=== PATIENT | male | born 1960 | race Caucasian/White ===

== ENCOUNTER 2020-05-03 12:28 | Inpatient (IN) | payer OTHER ==
[2020-05-03 13:25] VITALS: BMI 27.1
[2020-05-03] MEDS ORDERED: IBUPROFEN 400 MG TABLET (FP) PO ONE (13:49)
[2020-05-03] MEDS ORDERED: BISMUTH SUBSALICYLATE 524 MG/30 ML UD PO PRN (13:53)
[2020-05-03] MEDS ORDERED: ONDANSETRON *ODT* 4 MG TABLET SL PRN (13:53)
[2020-05-03] MEDS ORDERED: chlordiazePOXIDE HCL 25 MG CAPSULE PO PRN (13:53)
[2020-05-03] MEDS ORDERED: MAG HYDROX/AL HYDROX/SIMETH 30 ML UNIT-DOSE CUP PO PRN (13:53)
[2020-05-03] MEDS ORDERED: MENTHOL/PHENOL 1 EACH UD MM PRN (13:53)
[2020-05-03] MEDS ORDERED: METHOCARBAMOL 500 MG TABLET PO PRN (13:53)
[2020-05-03] MEDS ORDERED: MAGNESIUM HYDROX 2400MG/30ML ORAL SUSPENSION 30 ML CUP PO PRN (13:53)
[2020-05-03] MEDS ORDERED: ACETAMINOPHEN 325 MG TABLET (FP) PO PRN ×2 (13:53)
[2020-05-03] MEDS ORDERED: MAGNESIUM CITRATE 300 ML BOTTLE PO PRN (13:53)
[2020-05-03] MEDS ORDERED: NICOTINE POLACRILEX 2 MG GUM BUC PRN (13:53)
[2020-05-03] MEDS: IBUPROFEN 400 MG TABLET (FP) PO PRN (14:00)
[2020-05-03] MEDS: hydrOXYzine PAMOATE 25 MG CAPSULE (FP) PO SCH ×3 (15:27→22:10)
[2020-05-03] MEDS: NICOTINE 21 MG/24 HOURS TOPICAL PATCH TD SCH (15:31)
[2020-05-03 16:59] LABS: HEMATOCRIT 42.1 % (35.4-49); HEMOGLOBIN 14.9 GM/dL (11.7-16.9); MCH 30.3 pg (25.7-33.7); MCHC 35.3 g/dl (32.0-35.9); MEAN CELL VOLUME 86.1 fl (80-96); MEAN PLT VOLUME 7.4 fl (7.5-11.1); PLATELET COUNT 368 K/MM3 (134-434); POTASSIUM 3.4 mmol/L (3.5-5.1); RDW 14.1 % (11.9-15.9); WHITE BLOOD COUNT 9.1 K/mm3 (4.0-10.0)
[2020-05-03 17:04] LABS: CALCIUM 9.4 mg/dL (8.5-10.1)
[2020-05-03 17:05] LABS: ALBUMIN 4.5 g/dl (3.4-5.0); BLOOD UREA NITROGEN 10.3 mg/dL (7-18)
[2020-05-03 17:08] LABS: CREATININE 1.1 mg/dL (0.55-1.3)
[2020-05-03 17:10] LABS: BILIRUBIN,TOTAL 1.2 mg/dL (0.2-1); TOT PROT 8.8 g/dl (6.4-8.2)
[2020-05-03] MEDS: chlordiazePOXIDE HCL 25 MG CAPSULE PO SCH ×2 (17:43→22:09)
[2020-05-03] MEDS: MELATONIN 5 MG TABLETS PO SCH (22:09)
[2020-05-03] MEDS: THIAMINE HCL 100 MG TABLET (FP) PO SCH (22:09)
[2020-05-04] MEDS: hydrOXYzine PAMOATE 25 MG CAPSULE (FP) PO SCH ×5 (05:14→22:26)
[2020-05-04] MEDS: chlordiazePOXIDE HCL 25 MG CAPSULE PO SCH ×4 (05:14→22:25)
[2020-05-04] MEDS: FLUoxetine HCL 20 MG CAPSULE PO SCH (10:12)
[2020-05-04] MEDS: NICOTINE 21 MG/24 HOURS TOPICAL PATCH TD SCH (10:12)
[2020-05-04] MEDS: PRENATAL VITAMINS W/ FOLIC ACID TABLET (FP) PO SCH (10:12)
[2020-05-04 12:53] LABS: HIV INTERPRETATION NEGATIVE (NEGATIVE)
[2020-05-04] MEDS: IBUPROFEN 400 MG TABLET (FP) PO PRN (16:35)
[2020-05-04] MEDS: THIAMINE HCL 100 MG TABLET (FP) PO SCH (22:25)
[2020-05-04] MEDS: MELATONIN 5 MG TABLETS PO SCH (22:26)
[2020-05-05] MEDS: hydrOXYzine PAMOATE 25 MG CAPSULE (FP) PO SCH ×5 (05:27→22:14)
[2020-05-05] MEDS: chlordiazePOXIDE HCL 25 MG CAPSULE PO SCH ×4 (05:27→22:14)
[2020-05-05] MEDS: FLUoxetine HCL 20 MG CAPSULE PO SCH (10:06)
[2020-05-05] MEDS: NICOTINE 21 MG/24 HOURS TOPICAL PATCH TD SCH (10:07)
[2020-05-05] MEDS: PRENATAL VITAMINS W/ FOLIC ACID TABLET (FP) PO SCH (10:07)
[2020-05-05] MEDS ORDERED: POTASSIUM CHLORIDE TABS 20 MEQ TABLET.ER (FP) PO ONE (14:15)
[2020-05-05] MEDS: IBUPROFEN 400 MG TABLET (FP) PO PRN (17:32)
[2020-05-05] MEDS: MELATONIN 5 MG TABLETS PO SCH (22:14)
[2020-05-05] MEDS: THIAMINE HCL 100 MG TABLET (FP) PO SCH (22:14)
[2020-05-06] MEDS ORDERED: chlordiazePOXIDE HCL 10 MG CAPSULE PO PRN
[2020-05-06] MEDS: hydrOXYzine PAMOATE 25 MG CAPSULE (FP) PO SCH ×5 (05:35→22:53)
[2020-05-06] MEDS: chlordiazePOXIDE HCL 10 MG CAPSULE PO SCH ×4 (05:35→22:47)
[2020-05-06] MEDS: NICOTINE 21 MG/24 HOURS TOPICAL PATCH TD SCH (10:43)
[2020-05-06] MEDS: IBUPROFEN 400 MG TABLET (FP) PO PRN (10:46)
[2020-05-06] MEDS: FLUoxetine HCL 20 MG CAPSULE PO SCH (10:46)
[2020-05-06] MEDS: PRENATAL VITAMINS W/ FOLIC ACID TABLET (FP) PO SCH (10:50)
[2020-05-06 11:32] LABS: POTASSIUM 3.8 mmol/L (3.5-5.1)
[2020-05-06 11:40] LABS: ALBUMIN 3.1 g/dl (3.4-5.0)
[2020-05-06 11:42] LABS: BILIRUBIN,DIRECT 0.1 mg/dL (0.0-0.2)
[2020-05-06 11:44] LABS: BILIRUBIN,TOTAL 0.6 mg/dL (0.2-1)
[2020-05-06 11:48] LABS: TOT PROT 6.3 g/dl (6.4-8.2)
[2020-05-06] MEDS: THIAMINE HCL 100 MG TABLET (FP) PO SCH (22:47)
[2020-05-06] MEDS: MELATONIN 5 MG TABLETS PO SCH (22:52)
[2020-05-07] MEDS: hydrOXYzine PAMOATE 25 MG CAPSULE (FP) PO SCH ×5 (05:20→22:21)
[2020-05-07] MEDS: chlordiazePOXIDE HCL 10 MG CAPSULE PO SCH ×2 (05:20→18:19)
[2020-05-07] MEDS: IBUPROFEN 400 MG TABLET (FP) PO PRN (07:23)
[2020-05-07] MEDS: FLUoxetine HCL 20 MG CAPSULE PO SCH (10:09)
[2020-05-07] MEDS: PRENATAL VITAMINS W/ FOLIC ACID TABLET (FP) PO SCH (10:09)
[2020-05-07] MEDS: NICOTINE 21 MG/24 HOURS TOPICAL PATCH TD SCH (10:10)
[2020-05-07] MEDS: THIAMINE HCL 100 MG TABLET (FP) PO SCH (22:20)
[2020-05-07] MEDS: MELATONIN 5 MG TABLETS PO SCH (22:21)
[2020-05-08] MEDS ORDERED: chlordiazePOXIDE HCL 10 MG CAPSULE PO ONE (05:00)
[2020-05-08] MEDS: hydrOXYzine PAMOATE 25 MG CAPSULE (FP) PO SCH ×2 (05:21→10:39)
[2020-05-08 09:29] VITALS: BP 129/67; PULSE 56; TEMP 98.6
[2020-05-08] MEDS ORDERED: amLODIPine BESYLATE 10 MG TABLET (FP) PO SCH (10:00)
[2020-05-08] MEDS: IBUPROFEN 400 MG TABLET (FP) PO PRN (10:36)
[2020-05-08] MEDS: FLUoxetine HCL 20 MG CAPSULE PO SCH (10:36)
[2020-05-08] MEDS: PRENATAL VITAMINS W/ FOLIC ACID TABLET (FP) PO SCH (10:38)
[2020-05-08] MEDS: NICOTINE 21 MG/24 HOURS TOPICAL PATCH TD SCH (10:38)
== END 2020-05-08 12:07 | disposition other institution (70) | DRG 774 ==
LOC: YASAS 12:28 → Y6N 14:30
PROVIDERS: ADMIT Allergy & Immunology; ATTEND Allergy & Immunology
PROC: HZ2ZZZZ Detoxification Services for Substance Abuse Treatment (ICD-10-PCS; principal; 2020-05-03)
DX: F10.230 Alcohol dependence with withdrawal, uncomplicated (principal); F13.20 Sedative, hypnotic or anxiolytic dependence, uncomplicated; F14.20 Cocaine dependence, uncomplicated; F12.10 Cannabis abuse, uncomplicated; F19.24 Other psychoactive substance dependence with psychoactive substance-induced mood disorder; F19.280 Other psychoactive substance dependence with psychoactive substance-induced anxiety disorder; F19.282 Other psychoactive substance dependence with psychoactive substance-induced sleep disorder; I10 Essential (primary) hypertension; E87.6 Hypokalemia; B18.2 Chronic viral hepatitis C; N40.0 Benign prostatic hyperplasia without lower urinary tract symptoms; R79.89 Other specified abnormal findings of blood chemistry; Z87.891 Personal history of nicotine dependence; Z62.810 Personal history of physical and sexual abuse in childhood; Z86.74 Personal history of sudden cardiac arrest; Z86.59 Personal history of other mental and behavioral disorders; Z59.0 Homelessness
CPT/HCPCS: 36415; 80053; 80076; 84132; 85027; 86780; 87389; 93005; 93010; C9803; U0003

== ENCOUNTER 2020-05-08 12:31 | Inpatient (IN) | payer OTHER ==
[2020-05-08] MEDS ORDERED: guaiFENesin 200 MG/10 ML 10 ML UNIT-DOSE CUPS PO PRN (14:54)
[2020-05-08] MEDS ORDERED: P-EPHED 60MG/TRIPROLIDI 2.5MG TABLET PO PRN (14:54)
[2020-05-08] MEDS ORDERED: LOPERAMIDE HCL 2 MG CAPSULE PO PRN (14:54)
[2020-05-08] MEDS ORDERED: MENTHOL/PHENOL 1 EACH UD MM PRN (14:54)
[2020-05-08] MEDS ORDERED: MAGNESIUM HYDROX 2400MG/30ML ORAL SUSPENSION 30 ML CUP PO PRN (14:54)
[2020-05-08] MEDS ORDERED: MAG HYDROX/AL HYDROX/SIMETH 30 ML UNIT-DOSE CUP PO PRN (14:54)
[2020-05-08] MEDS ORDERED: ACETAMINOPHEN 325 MG TABLET (FP) PO PRN (14:54)
[2020-05-08] MEDS ORDERED: MAGNESIUM CITRATE 300 ML BOTTLE PO PRN (14:54)
[2020-05-08] MEDS ORDERED: NICOTINE POLACRILEX 2 MG GUM BUC PRN (14:56)
[2020-05-08] MEDS ORDERED: METHOCARBAMOL 500 MG TABLET PO PRN (14:58)
[2020-05-08] MEDS: THIAMINE HCL 100 MG TABLET (FP) PO SCH (21:07)
[2020-05-08] MEDS: MELATONIN 5 MG TABLETS PO SCH (21:07)
[2020-05-08] MEDS: LIDOCAINE PATCH REMOVAL MC SCH (21:07)
[2020-05-09] MEDS: FLUoxetine HCL 20 MG CAPSULE PO SCH (09:32)
[2020-05-09] MEDS: HYDROCHLOROTHIAZIDE 25 MG TABLET (FP) PO SCH (09:32)
[2020-05-09] MEDS: PRENATAL VITAMINS W/ FOLIC ACID TABLET (FP) PO SCH (09:32)
[2020-05-09] MEDS: LIDOCAINE 5% TOPICAL PATCH TP SCH (09:33)
[2020-05-09] MEDS: amLODIPine BESYLATE 10 MG TABLET (FP) PO SCH (09:33)
[2020-05-09] MEDS: IBUPROFEN 400 MG TABLET (FP) PO PRN (09:33)
[2020-05-09] MEDS: THIAMINE HCL 100 MG TABLET (FP) PO SCH (22:00)
[2020-05-09] MEDS: MELATONIN 5 MG TABLETS PO SCH (22:00)
[2020-05-09] MEDS: LIDOCAINE PATCH REMOVAL MC SCH (22:00)
[2020-05-10] MEDS: PRENATAL VITAMINS W/ FOLIC ACID TABLET (FP) PO SCH (09:49)
[2020-05-10] MEDS: amLODIPine BESYLATE 10 MG TABLET (FP) PO SCH (09:49)
[2020-05-10] MEDS: FLUoxetine HCL 20 MG CAPSULE PO SCH (09:49)
[2020-05-10] MEDS: HYDROCHLOROTHIAZIDE 25 MG TABLET (FP) PO SCH (09:49)
[2020-05-10] MEDS: LIDOCAINE 5% TOPICAL PATCH TP SCH (09:50)
[2020-05-10] MEDS: IBUPROFEN 400 MG TABLET (FP) PO PRN ×2 (09:51→21:49)
[2020-05-10] MEDS: LIDOCAINE PATCH REMOVAL MC SCH (21:48)
[2020-05-10] MEDS: MELATONIN 5 MG TABLETS PO SCH (21:48)
[2020-05-10] MEDS: THIAMINE HCL 100 MG TABLET (FP) PO SCH (21:48)
[2020-05-11] MEDS: hydrOXYzine PAMOATE 25 MG CAPSULE (FP) PO PRN (09:44)
[2020-05-11] MEDS: PRENATAL VITAMINS W/ FOLIC ACID TABLET (FP) PO SCH (09:45)
[2020-05-11] MEDS: LIDOCAINE 5% TOPICAL PATCH TP SCH (09:45)
[2020-05-11] MEDS: amLODIPine BESYLATE 10 MG TABLET (FP) PO SCH (09:45)
[2020-05-11] MEDS: HYDROCHLOROTHIAZIDE 25 MG TABLET (FP) PO SCH (09:45)
[2020-05-11] MEDS: FLUoxetine HCL 20 MG CAPSULE PO SCH (09:45)
[2020-05-11] MEDS: IBUPROFEN 400 MG TABLET (FP) PO PRN (09:45)
[2020-05-11] MEDS: LIDOCAINE PATCH REMOVAL MC SCH (22:46)
[2020-05-11] MEDS: MELATONIN 5 MG TABLETS PO SCH (22:46)
[2020-05-11] MEDS: THIAMINE HCL 100 MG TABLET (FP) PO SCH (22:47)
[2020-05-12] MEDS: LIDOCAINE 5% TOPICAL PATCH TP SCH (10:06)
[2020-05-12] MEDS: FLUoxetine HCL 20 MG CAPSULE PO SCH (10:07)
[2020-05-12] MEDS: HYDROCHLOROTHIAZIDE 25 MG TABLET (FP) PO SCH (10:07)
[2020-05-12] MEDS: PRENATAL VITAMINS W/ FOLIC ACID TABLET (FP) PO SCH (10:07)
[2020-05-12] MEDS: amLODIPine BESYLATE 10 MG TABLET (FP) PO SCH (10:07)
[2020-05-12] MEDS: LIDOCAINE PATCH REMOVAL MC SCH (22:14)
[2020-05-12] MEDS: MELATONIN 5 MG TABLETS PO SCH (22:14)
[2020-05-12] MEDS: THIAMINE HCL 100 MG TABLET (FP) PO SCH (22:14)
[2020-05-13] MEDS: PRENATAL VITAMINS W/ FOLIC ACID TABLET (FP) PO SCH (09:37)
[2020-05-13] MEDS: amLODIPine BESYLATE 10 MG TABLET (FP) PO SCH (09:37)
[2020-05-13] MEDS: FLUoxetine HCL 20 MG CAPSULE PO SCH (09:37)
[2020-05-13] MEDS: HYDROCHLOROTHIAZIDE 25 MG TABLET (FP) PO SCH (09:38)
[2020-05-13] MEDS: LIDOCAINE 5% TOPICAL PATCH TP SCH (09:38)
[2020-05-13] MEDS: IBUPROFEN 400 MG TABLET (FP) PO PRN (09:39)
[2020-05-13] MEDS: LIDOCAINE PATCH REMOVAL MC SCH (21:38)
[2020-05-13] MEDS: THIAMINE HCL 100 MG TABLET (FP) PO SCH (21:38)
[2020-05-13] MEDS: MELATONIN 5 MG TABLETS PO SCH (21:38)
[2020-05-14] MEDS: HYDROCHLOROTHIAZIDE 25 MG TABLET (FP) PO SCH (09:26)
[2020-05-14] MEDS: PRENATAL VITAMINS W/ FOLIC ACID TABLET (FP) PO SCH (09:26)
[2020-05-14] MEDS: FLUoxetine HCL 20 MG CAPSULE PO SCH (09:26)
[2020-05-14] MEDS: amLODIPine BESYLATE 10 MG TABLET (FP) PO SCH (09:27)
[2020-05-14] MEDS: LIDOCAINE 5% TOPICAL PATCH TP SCH (09:27)
[2020-05-14] MEDS: IBUPROFEN 400 MG TABLET (FP) PO PRN (09:28)
[2020-05-14] MEDS: THIAMINE HCL 100 MG TABLET (FP) PO SCH (22:14)
[2020-05-14] MEDS: MELATONIN 5 MG TABLETS PO SCH (22:14)
[2020-05-14] MEDS: LIDOCAINE PATCH REMOVAL MC SCH (22:14)
[2020-05-15] MEDS: amLODIPine BESYLATE 10 MG TABLET (FP) PO SCH (09:32)
[2020-05-15] MEDS: PRENATAL VITAMINS W/ FOLIC ACID TABLET (FP) PO SCH (09:32)
[2020-05-15] MEDS: FLUoxetine HCL 20 MG CAPSULE PO SCH (09:32)
[2020-05-15] MEDS: HYDROCHLOROTHIAZIDE 25 MG TABLET (FP) PO SCH (09:32)
[2020-05-15] MEDS: IBUPROFEN 400 MG TABLET (FP) PO PRN (09:33)
[2020-05-15] MEDS: LIDOCAINE 5% TOPICAL PATCH TP SCH (09:33)
[2020-05-15] MEDS: THIAMINE HCL 100 MG TABLET (FP) PO SCH (21:13)
[2020-05-15] MEDS: MELATONIN 5 MG TABLETS PO SCH (21:13)
[2020-05-15] MEDS: LIDOCAINE PATCH REMOVAL MC SCH (21:13)
[2020-05-16] MEDS: FLUoxetine HCL 20 MG CAPSULE PO SCH (09:43)
[2020-05-16] MEDS: amLODIPine BESYLATE 10 MG TABLET (FP) PO SCH (09:43)
[2020-05-16] MEDS: PRENATAL VITAMINS W/ FOLIC ACID TABLET (FP) PO SCH (09:43)
[2020-05-16] MEDS: HYDROCHLOROTHIAZIDE 25 MG TABLET (FP) PO SCH (09:43)
[2020-05-16] MEDS: LIDOCAINE 5% TOPICAL PATCH TP SCH (09:44)
[2020-05-16] MEDS: IBUPROFEN 400 MG TABLET (FP) PO PRN (14:16)
[2020-05-16] MEDS: THIAMINE HCL 100 MG TABLET (FP) PO SCH (21:40)
[2020-05-16] MEDS: LIDOCAINE PATCH REMOVAL MC SCH (21:40)
[2020-05-16] MEDS: MELATONIN 5 MG TABLETS PO SCH (21:40)
[2020-05-17] MEDS: amLODIPine BESYLATE 10 MG TABLET (FP) PO SCH (09:37)
[2020-05-17] MEDS: FLUoxetine HCL 20 MG CAPSULE PO SCH (09:37)
[2020-05-17] MEDS: HYDROCHLOROTHIAZIDE 25 MG TABLET (FP) PO SCH (09:37)
[2020-05-17] MEDS: LIDOCAINE 5% TOPICAL PATCH TP SCH (09:38)
[2020-05-17] MEDS: IBUPROFEN 400 MG TABLET (FP) PO PRN (09:38)
[2020-05-17] MEDS: PRENATAL VITAMINS W/ FOLIC ACID TABLET (FP) PO SCH (09:38)
[2020-05-17] MEDS: MELATONIN 5 MG TABLETS PO SCH (21:38)
[2020-05-17] MEDS: LIDOCAINE PATCH REMOVAL MC SCH (21:38)
[2020-05-17] MEDS: THIAMINE HCL 100 MG TABLET (FP) PO SCH (21:38)
[2020-05-18] MEDS: amLODIPine BESYLATE 10 MG TABLET (FP) PO SCH (09:48)
[2020-05-18] MEDS: FLUoxetine HCL 20 MG CAPSULE PO SCH (09:48)
[2020-05-18] MEDS: PRENATAL VITAMINS W/ FOLIC ACID TABLET (FP) PO SCH (09:48)
[2020-05-18] MEDS: HYDROCHLOROTHIAZIDE 25 MG TABLET (FP) PO SCH (09:48)
[2020-05-18] MEDS: IBUPROFEN 400 MG TABLET (FP) PO PRN (09:49)
[2020-05-18] MEDS: LIDOCAINE 5% TOPICAL PATCH TP SCH (09:49)
[2020-05-19] MEDS: THIAMINE HCL 100 MG TABLET (FP) PO SCH ×2 (00:16→21:54)
[2020-05-19] MEDS: LIDOCAINE PATCH REMOVAL MC SCH ×2 (00:16→21:53)
[2020-05-19] MEDS: MELATONIN 5 MG TABLETS PO SCH ×2 (00:16→21:54)
[2020-05-19] MEDS: PRENATAL VITAMINS W/ FOLIC ACID TABLET (FP) PO SCH (09:22)
[2020-05-19] MEDS: FLUoxetine HCL 20 MG CAPSULE PO SCH (09:23)
[2020-05-19] MEDS: HYDROCHLOROTHIAZIDE 25 MG TABLET (FP) PO SCH (09:23)
[2020-05-19] MEDS: LIDOCAINE 5% TOPICAL PATCH TP SCH (09:23)
[2020-05-19] MEDS: amLODIPine BESYLATE 10 MG TABLET (FP) PO SCH (09:23)
[2020-05-19] MEDS: IBUPROFEN 400 MG TABLET (FP) PO PRN (09:24)
[2020-05-20] MEDS: FLUoxetine HCL 20 MG CAPSULE PO SCH (09:35)
[2020-05-20] MEDS: PRENATAL VITAMINS W/ FOLIC ACID TABLET (FP) PO SCH (09:35)
[2020-05-20] MEDS: LIDOCAINE 5% TOPICAL PATCH TP SCH (09:36)
[2020-05-20] MEDS: HYDROCHLOROTHIAZIDE 25 MG TABLET (FP) PO SCH (09:36)
[2020-05-20] MEDS: amLODIPine BESYLATE 10 MG TABLET (FP) PO SCH (09:36)
[2020-05-20] MEDS: IBUPROFEN 400 MG TABLET (FP) PO PRN (09:37)
[2020-05-20] MEDS: LIDOCAINE PATCH REMOVAL MC SCH (21:19)
[2020-05-20] MEDS: THIAMINE HCL 100 MG TABLET (FP) PO SCH (21:19)
[2020-05-20] MEDS: MELATONIN 5 MG TABLETS PO SCH (21:19)
[2020-05-21] MEDS: FLUoxetine HCL 20 MG CAPSULE PO SCH (09:26)
[2020-05-21] MEDS: LIDOCAINE 5% TOPICAL PATCH TP SCH (09:26)
[2020-05-21] MEDS: PRENATAL VITAMINS W/ FOLIC ACID TABLET (FP) PO SCH (09:26)
[2020-05-21] MEDS: amLODIPine BESYLATE 10 MG TABLET (FP) PO SCH (09:26)
[2020-05-21] MEDS: HYDROCHLOROTHIAZIDE 25 MG TABLET (FP) PO SCH (09:26)
[2020-05-21] MEDS: IBUPROFEN 400 MG TABLET (FP) PO PRN (09:27)
[2020-05-21] MEDS: MELATONIN 5 MG TABLETS PO SCH (21:17)
[2020-05-21] MEDS: THIAMINE HCL 100 MG TABLET (FP) PO SCH (21:17)
[2020-05-21] MEDS: LIDOCAINE PATCH REMOVAL MC SCH (21:17)
[2020-05-22] MEDS: PRENATAL VITAMINS W/ FOLIC ACID TABLET (FP) PO SCH (09:24)
[2020-05-22] MEDS: LIDOCAINE 5% TOPICAL PATCH TP SCH (09:24)
[2020-05-22] MEDS: amLODIPine BESYLATE 10 MG TABLET (FP) PO SCH (09:24)
[2020-05-22] MEDS: FLUoxetine HCL 20 MG CAPSULE PO SCH (09:24)
[2020-05-22] MEDS: HYDROCHLOROTHIAZIDE 25 MG TABLET (FP) PO SCH (09:24)
[2020-05-22] MEDS: IBUPROFEN 400 MG TABLET (FP) PO PRN (09:26)
[2020-05-22] MEDS: LIDOCAINE PATCH REMOVAL MC SCH (21:58)
[2020-05-22] MEDS: THIAMINE HCL 100 MG TABLET (FP) PO SCH (21:58)
[2020-05-22] MEDS: MELATONIN 5 MG TABLETS PO SCH (21:58)
[2020-05-23] MEDS: IBUPROFEN 400 MG TABLET (FP) PO PRN (09:28)
[2020-05-23] MEDS: HYDROCHLOROTHIAZIDE 25 MG TABLET (FP) PO SCH (09:28)
[2020-05-23] MEDS: PRENATAL VITAMINS W/ FOLIC ACID TABLET (FP) PO SCH (09:28)
[2020-05-23] MEDS: amLODIPine BESYLATE 10 MG TABLET (FP) PO SCH (09:29)
[2020-05-23] MEDS: LIDOCAINE 5% TOPICAL PATCH TP SCH (09:29)
[2020-05-23] MEDS: FLUoxetine HCL 20 MG CAPSULE PO SCH (09:29)
[2020-05-23] MEDS: THIAMINE HCL 100 MG TABLET (FP) PO SCH (21:39)
[2020-05-23] MEDS: MELATONIN 5 MG TABLETS PO SCH (21:39)
[2020-05-23] MEDS: LIDOCAINE PATCH REMOVAL MC SCH (21:39)
[2020-05-24] MEDS: PRENATAL VITAMINS W/ FOLIC ACID TABLET (FP) PO SCH (09:34)
[2020-05-24] MEDS: amLODIPine BESYLATE 10 MG TABLET (FP) PO SCH (09:35)
[2020-05-24] MEDS: FLUoxetine HCL 20 MG CAPSULE PO SCH (09:35)
[2020-05-24] MEDS: HYDROCHLOROTHIAZIDE 25 MG TABLET (FP) PO SCH (09:35)
[2020-05-24] MEDS: IBUPROFEN 400 MG TABLET (FP) PO PRN (09:36)
[2020-05-24] MEDS: LIDOCAINE 5% TOPICAL PATCH TP SCH (09:39)
[2020-05-24] MEDS: THIAMINE HCL 100 MG TABLET (FP) PO SCH (21:10)
[2020-05-24] MEDS: MELATONIN 5 MG TABLETS PO SCH (21:10)
[2020-05-24] MEDS: LIDOCAINE PATCH REMOVAL MC SCH (21:10)
[2020-05-25] MEDS: FLUoxetine HCL 20 MG CAPSULE PO SCH (09:30)
[2020-05-25] MEDS: amLODIPine BESYLATE 10 MG TABLET (FP) PO SCH (09:30)
[2020-05-25] MEDS: HYDROCHLOROTHIAZIDE 25 MG TABLET (FP) PO SCH (09:30)
[2020-05-25] MEDS: LIDOCAINE 5% TOPICAL PATCH TP SCH (09:31)
[2020-05-25] MEDS: PRENATAL VITAMINS W/ FOLIC ACID TABLET (FP) PO SCH (09:31)
[2020-05-25] MEDS: IBUPROFEN 400 MG TABLET (FP) PO PRN (09:32)
[2020-05-25] MEDS: MELATONIN 5 MG TABLETS PO SCH (21:33)
[2020-05-25] MEDS: THIAMINE HCL 100 MG TABLET (FP) PO SCH (21:33)
[2020-05-25] MEDS: LIDOCAINE PATCH REMOVAL MC SCH (21:33)
[2020-05-26] MEDS: PRENATAL VITAMINS W/ FOLIC ACID TABLET (FP) PO SCH (09:14)
[2020-05-26] MEDS: FLUoxetine HCL 20 MG CAPSULE PO SCH (09:14)
[2020-05-26] MEDS: amLODIPine BESYLATE 10 MG TABLET (FP) PO SCH (09:14)
[2020-05-26] MEDS: HYDROCHLOROTHIAZIDE 25 MG TABLET (FP) PO SCH (09:14)
[2020-05-26] MEDS: LIDOCAINE 5% TOPICAL PATCH TP SCH (09:14)
[2020-05-26] MEDS: hydrOXYzine PAMOATE 25 MG CAPSULE (FP) PO PRN (09:14)
[2020-05-26] MEDS: IBUPROFEN 400 MG TABLET (FP) PO PRN (09:15)
[2020-05-26] MEDS: THIAMINE HCL 100 MG TABLET (FP) PO SCH (21:59)
[2020-05-26] MEDS: MELATONIN 5 MG TABLETS PO SCH (21:59)
[2020-05-26] MEDS: LIDOCAINE PATCH REMOVAL MC SCH (21:59)
[2020-05-27] MEDS: HYDROCHLOROTHIAZIDE 25 MG TABLET (FP) PO SCH (09:29)
[2020-05-27] MEDS: IBUPROFEN 400 MG TABLET (FP) PO PRN (09:29)
[2020-05-27] MEDS: amLODIPine BESYLATE 10 MG TABLET (FP) PO SCH (09:29)
[2020-05-27] MEDS: FLUoxetine HCL 20 MG CAPSULE PO SCH (09:30)
[2020-05-27] MEDS: PRENATAL VITAMINS W/ FOLIC ACID TABLET (FP) PO SCH (09:30)
[2020-05-27] MEDS: LIDOCAINE 5% TOPICAL PATCH TP SCH (09:30)
[2020-05-27] MEDS: LIDOCAINE PATCH REMOVAL MC SCH (23:58)
[2020-05-27] MEDS: THIAMINE HCL 100 MG TABLET (FP) PO SCH (23:58)
[2020-05-27] MEDS: MELATONIN 5 MG TABLETS PO SCH (23:58)
[2020-05-28 06:47] VITALS: BP 174/75; PULSE 69; TEMP 97.8
[2020-05-28] MEDS: amLODIPine BESYLATE 10 MG TABLET (FP) PO SCH (09:22)
[2020-05-28] MEDS: FLUoxetine HCL 20 MG CAPSULE PO SCH (09:22)
[2020-05-28] MEDS: HYDROCHLOROTHIAZIDE 25 MG TABLET (FP) PO SCH (09:22)
[2020-05-28] MEDS: IBUPROFEN 400 MG TABLET (FP) PO PRN (09:22)
[2020-05-28] MEDS: PRENATAL VITAMINS W/ FOLIC ACID TABLET (FP) PO SCH (09:23)
[2020-05-28] MEDS: LIDOCAINE 5% TOPICAL PATCH TP SCH (09:23)
== END 2020-05-28 10:01 | disposition home or self-care (01) | DRG 772 ==
LOC: YASAS 12:31 → Y5N 12:32
PROVIDERS: ADMIT Allergy & Immunology; ATTEND Allergy & Immunology
PROC: HZ42ZZZ Group Counseling for Substance Abuse Treatment, Cognitive-Behavioral (ICD-10-PCS; principal; 2020-05-08)
DX: F10.20 Alcohol dependence, uncomplicated (principal); F14.20 Cocaine dependence, uncomplicated; F13.20 Sedative, hypnotic or anxiolytic dependence, uncomplicated; F12.20 Cannabis dependence, uncomplicated; F32.9 Major depressive disorder, single episode, unspecified; I10 Essential (primary) hypertension; N40.0 Benign prostatic hyperplasia without lower urinary tract symptoms; B18.2 Chronic viral hepatitis C; Z87.891 Personal history of nicotine dependence; Z59.0 Homelessness